=== PATIENT | male | born 1980 | race Caucasian/White ===

== ENCOUNTER → 2022-10-24 | Outpatient (CLI) | payer OTHER ==
[~2022-10-24] MED LIST: Augmentin 875-1 EACH PO
== END | disposition home or self-care (01) ==
LOC: LAB 15:40 → LAB SHORT 15:40
DX: L02.91 Cutaneous abscess, unspecified (principal)
CPT/HCPCS: 87070; 87075; 87205

== ENCOUNTER 2024-02-26 23:06 | Emergency (ER) | payer BC, OTHER ==
[~2024-02-26] VITALS: Ht 185.4 cm; Wt 108.9 kg
[2024-02-26 23:22] VITALS: BP 154/105
[2024-02-26] MEDS ORDERED: PredniSONE 20 MG Tab PO ONE (23:25)
[2024-02-26] MEDS ORDERED: Prednisone20 MG PO (23:27)
== END 2024-02-26 23:40 | disposition home or self-care (01) ==
LOC: ER 23:06
DX: L23.7 Allergic contact dermatitis due to plants, except food (principal); F17.200 Nicotine dependence, unspecified, uncomplicated
CPT/HCPCS: 99282; J7512